=== PATIENT | female | born 1965 | race Hispanic/Latino ===

== ENCOUNTER 2021-07-30 11:20 | Emergency (ER) | payer OTHER, MEDICAID, SELFPAY ==
[2021-07-30 11:25] VITALS: BP 194/84; PULSE 75; RESP 18; TEMP 36.3; O2SAT 100; BMI 26.2
--- NOTE | 2021-07-30 11:50 | DI.RAD.S_ITS ---
PROCEDURE: XR CHEST 1V INDICATIONS: chest pain TECHNIQUE: One view of the chest was acquired. COMPARISON: [facility], , CHEST 1VW (PORTABLE), 11/25/2012, 21:52. FINDINGS: Surgical changes and devices: None. Lungs and pleura: Lungs are clear. No pleural effusions or pneumothorax. Mediastinum: Mediastinal contours appear normal. Heart size is normal. Bones and chest wall: No suspicious bony lesions. Overlying soft tissues appear unremarkable. IMPRESSION: No acute cardiopulmonary disease process. Dictated by: Emily Levin MD, PhD on 07/30/2021 at 12:13 Approved by: Emily Levin MD, PhD on 07/30/2021 at 12:13
--- NOTE | 2021-07-30 12:22 | DI.US.S_ITS ---
PROCEDURE: US ABDOMEN LIMITED INDICATIONS: RUQ pain TECHNIQUE: Real-time scanning was performed of the abdominal and retroperitoneal organs, with image documentation. COMPARISON: None. FINDINGS: Liver: Liver is normal in size and homogeneous in echotexture. Gallbladder: The gallbladder appears normal without gallstones or gallbladder wall thickening. There is no pericholecystic fluid. Sonographic Carrillo sign is negative. Biliary ducts: Intrahepatic bile ducts are non-dilated. Extrahepatic bile duct caliber measures 3 mm. Normal is 6-7 mm or less in diameter, or 10 mm or less post-cholecystectomy. Pancreas: Visualized portions of the pancreas are sonographically normal. Miscellaneous: No free right upper quadrant fluid. IMPRESSION: No acute abnormality is identified in the right upper quadrant. Normal gallbladder. Dictated by: Orlando Hernandez M.D. on 07/30/2021 at 13:08 Approved by: Orlando Hernandez M.D. on 07/30/2021 at 13:10
[2021-07-30 12:23] VITALS: BP 166/74; PULSE 71; RESP 24
[2021-07-30 12:30] VITALS: BP 146/73; PULSE 66; RESP 10
[2021-07-30 12:34] LABS: Add Manual Diff / Slide Review NO; Basophils Absolute Auto 0 /uL (0-100); Basophils Percent Auto 0.6 % (0-2); Eosinophils Absolute Auto 0 /uL (0-450); Eosinophils Percent Auto 0.3 % (2-4); Hematocrit 38.3 % (36-46); Hemoglobin 13.1 g/dL (12.0-16.0); Lymphocytes Absolute Auto 1600 /uL (1100-4500); Mean Corpuscular HGB Conc 34.2 % (30-36); Mean Corpuscular Hemoglobin 31.6 PG (26-34); Mean Corpuscular Volume 92.4 fL (80-100); Monocytes Absolute Auto 200 /uL (0-900); Monocytes Percent Auto 3.3 % (3-14); Neutrophils Absolute Auto 4400 /uL (1500-7000); Neutrophils Percent Auto 69.8 % (50-75); Platelet Count 220 X10^3/uL (150-400); Red Blood Cell Count 4.14 X10^6/uL (4.0-5.2); Red Cell Distribution Width 13.2 % (11.6-14.8); White Blood Cell Count 6.3 X10^3/uL (4.5-11.0)
--- NOTE | 2021-07-30 12:38 | ED.HA ---
HPI - Headache <Shantal Chiang PA-C - Last Filed: 07/31/21 22:25> General Chief Complaint: Headache Stated Complaint: Headache/HBP/Stomache Pain/Tired, Chest discomfort Time Seen by Provider: 07/30/21 11:27 Mode of arrival: Ambulatory Limitations: no limitations History of Present Illness HPI Narrative: 55-year-old female PMH fatty liver who presents to the ED complaining of one-week history of intermittent they symptoms to include right-sided chest discomfort, right upper quadrant pain after spicy meal, fatigue, headache, and intermittent episodes of elevated blood pressure. Patient states that last week she received bad news and had is intermittently had these symptoms. She has been monitoring her blood pressure as of yesterday and noted readings of 160/80, with before/89, and 180/101. She took 3 aspirin and drank lemon water afterwards. Denies vision change, vomiting, diarrhea. Denies SOB, chest pain, or abdominal pain currently. Related Data Allergies Allergy/AdvReac Type Severity Reaction Status Date / Time No Known Drug Allergies Allergy Verified 07/30/21 11:49 Review of Systems <Shantal Chiang PA-C - Last Filed: 07/31/21 22:25> Review of Systems Narrative: General: denies fever, chills Head/Neck: reports headache, denies neck pain Eyes: denies visual changes, eye pain Cardio: denies chest pain, palpitations Respiratory: denies shortness of breath, cough GI: reports abdominal pain, denies nausea, vomiting, or diarrhea : denies dysuria, hematuria MSK: denies joint pain, muscle weakness Skin: denies rash, itching Neuro: denies numbness, tingling Patient History <Shantal Chiang PA-C - Last Filed: 07/31/21 22:25> Social History Smoking Status: Never smoker Smoking Status: Never smoker Substance Use Type: does not use Exam <Shantal Chiang PA-C - Last Filed: 07/31/21 22:25> Narrative Exam Narrative: Independently reviewed vitals signs and nursing notes. General: Awake, alert, nontoxic, no cardiorespiratory distress Head/Neck: Atraumatic, neck full range of motion Eyes: EOMI, conjunctiva normal Nose: nares patent, no rhinorrhea Mouth/Throat: moist mucus membranes, posterior pharynx normal, no oral lesions Cardio: Regular rate and rhythm, no peripheral edema Respiratory: CTAB unlabored without wheezing, stridor, or rales. No retractions. GI: Abdomen soft, nontender, no guarding or rebound tenderness MSK: Moves all extremities, neurovascularly intact Skin: Normal capillary refill, no rash Neuro: Normal speech and cognition, normal gait Initial Vital Signs Initial Vital Signs: Vital Signs Temperature 97.4 F L 07/30/21 11:25 Pulse Rate 75 07/30/21 11:25 Respiratory Rate 18 07/30/21 11:25 Blood Pressure 194/84 H 07/30/21 11:25 Pulse Oximetry 100 07/30/21 11:25 <Savita Figueroa DO - Last Filed: 08/04/21 02:16> Initial Vital Signs Initial Vital Signs: Vital Signs Temperature 97.4 F L 07/30/21 11:25 Pulse Rate 75 07/30/21 11:25 Respiratory Rate 18 07/30/21 11:25 Blood Pressure 194/84 H 07/30/21 11:25 Pulse Oximetry 100 07/30/21 11:25 Course <Shantal Chiang PA-C - Last Filed: 07/31/21 22:25> Orders Ordered: Discontinued Medications Acetaminophen (Acetaminophen 325 Mg Tablet) 650 mg PO NOW ONE Stop: 07/30/21 13:52 Last Admin: 07/30/21 14:03 Dose: Not Given Documented by: BISI Ibuprofen (Ibuprofen 600 Mg Tablet) 600 mg PO NOW ONE Stop: 07/30/21 13:59 Last Admin: 07/30/21 14:02 Dose: Not Given Documented by: BISI Ibuprofen (Ibuprofen 400 Mg Tablet) 400 mg PO NOW ONE Stop: 07/30/21 14:04 Last Admin: 07/30/21 14:10 Dose: 400 mg Documented by: BISI Vital Signs Vital signs: Vital Signs - 8 hr 07/30/21 13:30 Pulse Rate 64 Respiratory Rate 20 Blood Pressure 134/74 <Savita Figueroa DO - Last Filed: 08/04/21 02:16> Orders Ordered: Discontinued Medications Acetaminophen (Acetaminophen 325 Mg Tablet) 650 mg PO NOW ONE Stop: 07/30/21 13:52 Last Admin: 07/30/21 14:03 Dose: Not Given Documented by: BISI Ibuprofen (Ibuprofen 600 Mg Tablet) 600 mg PO NOW ONE Stop: 07/30/21 13:59 Last Admin: 07/30/21 14:02 Dose: Not Given Documented by: BISI Ibuprofen (Ibuprofen 400 Mg Tablet) 400 mg PO NOW ONE Stop: 07/30/21 14:04 Last Admin: 07/30/21 14:10 Dose: 400 mg Documented by: BISI Vital Signs Vital signs: Vital Signs - 8 hr 07/30/21 13:30 Pulse Rate 64 Respiratory Rate 20 Blood Pressure 134/74 MDM - Headache <Shantal Chiang PA-C - Last Filed: 07/31/21 22:25> Lab Data Result diagrams: 07/30/21 12:19 07/30/21 12:19 Labs: Lab Results 07/30/21 07/30/21 07/30/21 Range/Units 12:19 12:19 12:20 WBC 6.3 (4.5-11.0) X10^3/uL RBC 4.14 (4.0-5.2) X10^6/uL Hgb 13.1 (12.0-16.0) g/dL Hct 38.3 (36-46) % MCV 92.4 (80-100) fL MCH 31.6 (26-34) PG MCHC 34.2 (30-36) % RDW 13.2 (11.6-14.8) % Plt Count 220 (150-400) X10^3/uL Neut % (Auto) 69.8 (50-75) % Lymph % (Auto) 26.0 (25-40) % [place] % (Auto) 3.3 (3-14) % Eos % (Auto) 0.3 L (2-4) % Baso % (Auto) 0.6 (0-2) % Neut # (Auto) 4400 (0725-7669) /uL Lymph # (Auto) 1600 (0526-5649) /uL [place] # (Auto) 200 (0-900) /uL Eos # (Auto) 0 (0-450) /uL Baso # (Auto) 0 (0-100) /uL Sodium 138 (137-145) mmol/L Potassium 3.8 (3.4-5.1) mmol/L Chloride 105 (98-107) mmol/L Carbon Dioxide 26 (22-32) mmol/L BUN 19 H (7-17) mg/dL Creatinine 0.58 (0.52-1.04) mg/dL Estimated GFR > 60.0 (>60) mL/min BUN/Creatinine Ratio 32.8 H (6-22) Glucose 101 H (70-100) mg/dL Calcium 9.7 (8.4-10.2) mg/dL Total Bilirubin 1.1 (0.2-1.3) mg/dL AST 29 (14-36) IU/L ALT 18 (<35) IU/L Alkaline Phosphatase 56 (38-126) U/L Total Creatine Kinase 96 (30-135) U/L CK-MB (CK-2) TNP CK-MB (CK-2) Rel Index TNP Troponin I < 0.012 (0.01-0.034) ng/mL Total Protein 7.7 (6.3-8.2) g/dL Albumin 4.7 (3.5-5.0) g/dL Globulin 3.0 (1.7-4.1) g/dL Albumin/Globulin Ratio 1.6 (1.0-2.8) Lipase 52 (23-300) U/L SARS-CoV-2 (PCR) Negative (Negative) Urine Dip Bedside Urine Glucose Negative Bedside Urine Bilirubin - Negative Bedside Urine Ketone - Negative Urine Specific [place] 1.010 Bedside Urine Occult Blood +++ Bedside Urine pH 6.0 Bedside Urine Protein - Negative Bedside Urine Urobilinogen - Negative Bedside Urine Nitrite - Negative Bedside Urine Leukocytes - Negative Esterase Imaging Data Chest x-ray: Radiologist's Impression: PROCEDURE:? XR CHEST 1V ? INDICATIONS:? chest pain ? TECHNIQUE:? One view of the chest was acquired.? ? COMPARISON:? [facility], , CHEST 1VW (PORTABLE), 11/25/2012, 21:52. ? FINDINGS:? ? Surgical changes and devices:? None.? ? Lungs and pleura:? Lungs are clear.? No pleural effusions or pneumothorax.? ? Mediastinum:? Mediastinal contours appear normal.? Heart size is normal.? ? Bones and chest wall:? No suspicious bony lesions.? Overlying soft tissues appear unremarkable.? ? IMPRESSION:? No acute cardiopulmonary disease process. ? ? Dictated by: Emily Levin MD, PhD on 07/30/2021 at 12:13 ? ? Approved by: Emily Levin MD, PhD on 07/30/2021 at 12:13 ? US - abdomen: Radiologist's Impression: PROCEDURE:? US ABDOMEN LIMITED ? INDICATIONS:? RUQ pain ? TECHNIQUE:? Real-time scanning was performed of the abdominal and retroperitoneal organs, with image documentation.? ? COMPARISON:? None. ? FINDINGS:? ? Liver:? Liver is normal in size and homogeneous in echotexture.? ? Gallbladder:? The gallbladder appears normal without gallstones or gallbladder wall thickening.? There is no pericholecystic fluid.? Sonographic Carrillo sign is negative. ? Biliary ducts:? Intrahepatic bile ducts are non-dilated.? Extrahepatic bile duct caliber measures 3 mm.? Normal is 6-7 mm or less in diameter, or 10 mm or less post-cholecystectomy.? ? Pancreas:? Visualized portions of the pancreas are sonographically normal.? ? Miscellaneous:? No free right upper quadrant fluid.? ? ? IMPRESSION:? No acute abnormality is identified in the right upper quadrant.? Normal gallbladder. ? ? ? Dictated by: Orlando Hernandez M.D. on 07/30/2021 at 13:08 ? ? Approved by: Orlando Hernandez M.D. on 07/30/2021 at 13:10 ? ECG Data Interpretation: EKG independently reviewed by myself and ED provider at 1340 reveals normal sinus rhythm at 71 bpm with regular axis and intervals. No STEMI, ST segment changes, arrhythmia, or acute ischemic changes. MDM Narrative Medical decision making narrative: 55-year-old female PMH fatty liver who presents to the ED complaining of one-week history of intermittent they symptoms to include right-sided chest discomfort, right upper quadrant pain after spicy meal, fatigue, headache, and intermittent episodes of elevated blood pressure.?ED workup to include CBC, CMP, CK, troponin, lipase without acute abnormality. COVID negative. Chest x-ray and right upper quadrant ultrasound unremarkable. EKG unremarkable. No evidence of acute abdominal, cardiac, pulmonary findings. No evidence of hypertensive emergency. Patient is appropriate and amenable to discharge home. Vital signs are stable on repeat examination is unremarkable. Patient has been informed of results. Patient has been given strict return to ER precautions for any new or worsening symptoms. Patient understands to follow up closely with outpatient providers as instructed. Patient understands plan and agrees to discharge home. All questions and concerns answered at this time. <Savita Figueroa, DO - Last Filed: 08/04/21 02:16> Lab Data Labs: Lab Results 07/30/21 07/30/21 07/30/21 Range/Units 12:19 12:19 12:20 WBC 6.3 (4.5-11.0) X10^3/uL RBC 4.14 (4.0-5.2) X10^6/uL Hgb 13.1 (12.0-16.0) g/dL Hct 38.3 (36-46) % MCV 92.4 (80-100) fL MCH 31.6 (26-34) PG MCHC 34.2 (30-36) % RDW 13.2 (11.6-14.8) % Plt Count 220 (150-400) X10^3/uL Neut % (Auto) 69.8 (50-75) % Lymph % (Auto) 26.0 (25-40) % [place] % (Auto) 3.3 (3-14) % Eos % (Auto) 0.3 L (2-4) % Baso % (Auto) 0.6 (0-2) % Neut # (Auto) 4400 (5272-0350) /uL Lymph # (Auto) 1600 (4056-9544) /uL [place] # (Auto) 200 (0-900) /uL Eos # (Auto) 0 (0-450) /uL Baso # (Auto) 0 (0-100) /uL Sodium 138 (137-145) mmol/L Potassium 3.8 (3.4-5.1) mmol/L Chloride 105 (98-107) mmol/L Carbon Dioxide 26 (22-32) mmol/L BUN 19 H (7-17) mg/dL Creatinine 0.58 (0.52-1.04) mg/dL Estimated GFR > 60.0 (>60) mL/min BUN/Creatinine Ratio 32.8 H (6-22) Glucose 101 H (70-100) mg/dL Calcium 9.7 (8.4-10.2) mg/dL Total Bilirubin 1.1 (0.2-1.3) mg/dL AST 29 (14-36) IU/L ALT 18 (<35) IU/L Alkaline Phosphatase 56 (38-126) U/L Total Creatine Kinase 96 (30-135) U/L CK-MB (CK-2) TNP CK-MB (CK-2) Rel Index TNP Troponin I < 0.012 (0.01-0.034) ng/mL Total Protein 7.7 (6.3-8.2) g/dL Albumin 4.7 (3.5-5.0) g/dL Globulin 3.0 (1.7-4.1) g/dL Albumin/Globulin Ratio 1.6 (1.0-2.8) Lipase 52 (23-300) U/L SARS-CoV-2 (PCR) Negative (Negative) Urine Dip Bedside Urine Glucose Negative Bedside Urine Bilirubin - Negative Bedside Urine Ketone - Negative Urine Specific [place] 1.010 Bedside Urine Occult Blood +++ Bedside Urine pH 6.0 Bedside Urine Protein - Negative Bedside Urine Urobilinogen - Negative Bedside Urine Nitrite - Negative Bedside Urine Leukocytes - Negative Esterase Discharge Plan Departure Patient Disposition: Home Clinical Impression: Elevated blood pressure reading, Right upper quadrant abdominal pain, Chest discomfort Instructions: Acute Abdominal Pain, Blood Pressure Testing and Measurement, DI for Atypical Chest Pain Activity Restrictions/Additional Instructions: *You have been diagnosed with [elevated blood pressure reading] *What to do: [ ] New medication prescriptions sent to your pharmacy: [ ] [ ] New medication written as a paper prescription [X] No new medications given * Please follow-up with your primary care provider in 2-3 days, call for an appointment. Let them know you were seen in the emergency department and that we ask you to be seen in follow-up. * IF YOU DO NOT HAVE A PRIMARY CARE PROVIDER, please contact the [facility] Resource line at [phone]. They will ask some questions about your medical history and help to get up with a doctor in the community. * Return to the if you should have any new, worsening, or concerning symptoms, such as [recent chest pain, abdominal pain, vomiting, headache, dizziness]. <Savita Figueroa, - Last Filed: 08/04/21 02:16> Cosign ED Attending Tiffanyature Attestation: I was immediately available in the department for consultation. Documentation has been reviewed.
[2021-07-30 12:47] LABS: Alanine Aminotransferase 18 IU/L (<35); Albumin 4.7 g/dL (3.5-5.0); Albumin Globulin Ratio 1.6 (1.0-2.8); Alkaline Phosphatase 56 U/L (38-126); Aspartate Aminotransferase 29 IU/L (14-36); BUN Creatinine Ratio 32.8 (6-22); Bilirubin Total 1.1 mg/dL (0.2-1.3); Blood Urea Nitrogen 19 mg/dL (7-17); Calcium 9.7 mg/dL (8.4-10.2); Carbon Dioxide 26 mmol/L (22-32); Chloride 105 mmol/L (98-107); Creatine Kinase 96 U/L (30-135); Estimated Glomerular Filt Rate > 60.0 mL/min (>60); Glucose 101 mg/dL (70-100); HEMOLYSIS 18 (0-50); Lipase 52 U/L (23-300); Potassium 3.8 mmol/L (3.4-5.1); Sodium 138 mmol/L (137-145); Total Protein 7.7 g/dL (6.3-8.2)
[2021-07-30 12:58] LABS: Troponin I < 0.012 ng/mL (0.01-0.034)
[2021-07-30 13:00] VITALS: BP 144/78; PULSE 68; RESP 24
[2021-07-30 13:30] VITALS: BP 134/74; PULSE 64; RESP 20
[2021-07-30] MEDS: IBUPROFEN 400 MG TABLET PO (14:10)
[2021-07-30 14:44] LABS: COVID19 -Nasal RAPID Negative (Negative)
== END 2021-07-30 14:25 | disposition home or self-care (01) ==
PROVIDERS: Emergency Medicine; Emergency Provider Physician Assistant
DX: R03.0 Elevated blood-pressure reading, without diagnosis of hypertension (principal); R10.11 Right upper quadrant pain; R07.9 Chest pain, unspecified; R51.9 Headache, unspecified; Z20.822 Contact with and (suspected) exposure to COVID-19
CPT/HCPCS: 36415; 71045; 76705; 80053; 81003; 82550; 83690; 84484; 85025; 87635; 93005; 99284; C9803

== ENCOUNTER → 2023-07-26 08:25 | Outpatient (CLI) | payer OTHER, MEDICAID, SELFPAY ==
[2023-07-26 09:09] LABS: Add Manual Diff / Slide Review NO; Basophils Absolute Auto 0 /uL (0-100); Basophils Percent Auto 0.6 % (0-2); Eosinophils Absolute Auto 100 /uL (0-450); Eosinophils Percent Auto 2.2 % (2-4); Hematocrit 36.8 % (36-46); Hemoglobin 12.6 g/dL (12.0-16.0); Lymphocytes Absolute Auto 1600 /uL (1100-4500); Mean Corpuscular HGB Conc 34.1 % (30-36); Mean Corpuscular Hemoglobin 32.4 PG (26-34); Mean Corpuscular Volume 94.8 fL (80-100); Monocytes Absolute Auto 200 /uL (0-900); Monocytes Percent Auto 5.6 % (3-14); Neutrophils Absolute Auto 1700 /uL (1500-7000); Neutrophils Percent Auto 47.6 % (50-75); Platelet Count 206 X10^3/uL (150-400); Red Blood Cell Count 3.88 X10^6/uL (4.0-5.2); Red Cell Distribution Width 12.8 % (11.6-14.8); White Blood Cell Count 3.6 X10^3/uL (4.5-11.0)
[2023-07-26 09:38] LABS: Alanine Aminotransferase 24 IU/L (<35); Albumin 4.2 g/dL (3.5-5.0); Albumin Globulin Ratio 1.6 (1.0-2.8); Alkaline Phosphatase 41 U/L (38-126); Aspartate Aminotransferase 27 IU/L (14-36); BUN Creatinine Ratio 22.5 (6-22); Bilirubin Total 1.8 mg/dL (0.2-1.3); Blood Urea Nitrogen 16 mg/dL (7-17); Calcium 9.4 mg/dL (8.4-10.2); Carbon Dioxide 31 mmol/L (22-32); Chloride 103 mmol/L (98-107); Cholesterol 240 mg/dL (140-199); Estimated Glomerular Filt Rate > 60 mL/min (>60); Globulin 2.6 g/dL (1.7-4.1); Glucose 89 mg/dL (70-100); HDL Cholesterol 63 mg/dL (40-60); HEMOLYSIS < 15 (0-50); LDL Cholesterol Calculated 154 mg/dL (<100); Sodium 138 mmol/L (137-145); Total Protein 6.8 g/dL (6.3-8.2); Triglycerides 116 mg/dL (35-150)
[2023-07-26 09:54] LABS: Vitamin D 25 Hydroxy (D3) 36.5 ng/mL (30.0-100.0)
[2023-07-26 10:34] LABS: TSH w/ Reflex to FT4 3.15 uIU/mL (0.47-4.68)
[2023-07-26 10:49] LABS: Vitamin B12 410 pg/mL (239-931)
== END ==
PROVIDERS: Referring Provider Physician Assistant; Visit Provider Physician Assistant
DX: I10 Essential (primary) hypertension (principal); M85.80 Other specified disorders of bone density and structure, unspecified site; E78.5 Hyperlipidemia, unspecified
CPT/HCPCS: 36415; 80053; 80061; 82306; 82607; 84443; 85025

== ENCOUNTER → 2024-01-13 08:21 | Outpatient (CLI) | payer OTHER, MEDICAID, SELFPAY ==
--- NOTE | 2024-01-13 | DI.RAD.S_ITS ---
PROCEDURE: XR HUMERUS LT 2V INDICATIONS: LEFT ARM PAIN TECHNIQUE: 2 views of the humerus were acquired. COMPARISON: None. FINDINGS: Bones: No fractures or dislocations. No suspicious bony lesions. Soft tissues: No suspicious soft tissue calcifications. IMPRESSION: No acute bony abnormality. Approved by: Ruben Coronado M.D. on 01/13/2024 at 17:33
--- NOTE | 2024-01-13 08:25 | DI.MRI.S_ITS ---
PROCEDURE: MR KNEE LT WO CON INDICATIONS: left knee pain TECHNIQUE: Noncontrast sagittal PD fast spin echo and T2 fast spin echo with fat saturation, sagittal 3-D FLASH with fat saturation; coronal T1 spin echo and PD fast spin echo with fat saturation, and axial PD fast spin echo with fat saturation through the knee. COMPARISON: [facility], CR, XR KNEE ARTHRITIC SERIES RT, 10/19/2023, 7:32. FINDINGS: Image quality: Excellent. Anterior cruciate ligament: Intact. Posterior cruciate ligament: Intact. Medial collateral ligament: Intact. Lateral collateral ligament: Intact. Medial meniscus: Intermediate intrasubstance signal is seen in the body of the medial meniscus without extension to an articular surface, most compatible with intrasubstance degeneration. Lateral meniscus: Intact. Medial and lateral tendons: The semimembranosus tendon insertions appear intact. Visualized portions of the pes anserinus tendons appear normal. The popliteus tendon is intact. Iliotibial band appears normal. Anterior structures: The quadriceps and patellar tendons appear intact. No patellar subluxation. No femoral trochlear dysplasia or ventral trochlear prominence. No edema in the infrapatellar fat pad. Bones and cartilage: No bone marrow contusions or fractures. Medial femorotibial cartilage: No focal cartilage defect. Mild partial thickness thinning in the weight-bearing portion of the medial compartment. Lateral femorotibial cartilage: Mild surface cartilage irregularity at the posterior weight-bearing portion of the lateral tibial plateau. Patellofemoral cartilage: Partial-thickness cartilage irregularity in the cartilage fissuring are seen at the medial patellar facet with focal subchondral cystic changes Soft tissues: A small joint effusion is present. Trace medial popliteal cyst. The musculature surrounding the knee is normal in bulk. IMPRESSION: 1. Mild intrasubstance degeneration in the medial meniscus. No significant meniscal tear seen. 2. Cruciate and collateral ligaments are intact. No acute trabecular bone injury. 3. Mild tricompartmental grade 2 chondromalacia, slightly worse in the patellofemoral compartment where there are focal subchondral cystic changes. 4. Small joint effusion. Approved by: Orlando Hernandez M.D. on 01/13/2024 at 13:49
--- NOTE | 2024-01-13 08:25 | DI.MRI.S_ITS ---
PROCEDURE: MR KNEE RT WO CON INDICATIONS: right knee pain TECHNIQUE: Noncontrast sagittal PD fast spin echo and T2 fast spin echo with fat saturation, sagittal 3-D FLASH with fat saturation; coronal T1 spin echo and PD fast spin echo with fat saturation, and axial PD fast spin echo with fat saturation through the knee. COMPARISON: [facility], CR, XR KNEE ARTHRITIC SERIES RT, 10/19/2023, 7:32. [facility], MR, MR KNEE LT WO CON, 01/13/2024, 8:46. FINDINGS: Image quality: Excellent. Anterior cruciate ligament: Intact. Posterior cruciate ligament: Intact. Medial collateral ligament: Intact. Lateral collateral ligament: Intact. Medial meniscus: Intermediate signal intensity is seen in the body of the medial meniscus that appears to communicate with the tibial articular surface at the mid to inner third, likely a chronic tear. Lateral meniscus: Intact. Medial and lateral tendons: The semimembranosus tendon insertions appear intact. Visualized portions of the pes anserinus tendons appear normal. The popliteus tendon is intact. Iliotibial band appears normal. Anterior structures: The quadriceps and patellar tendons appear intact. No patellar subluxation. No femoral trochlear dysplasia or ventral trochlear prominence. No edema in the infrapatellar fat pad. Bones and cartilage: No bone marrow contusions or fractures. Medial femorotibial cartilage: Mild partial thickness cartilage thinning in the weight-bearing portion of the medial femorotibial compartment. Lateral femorotibial cartilage: Mild partial thickness cartilage thinning and surface irregularity. Patellofemoral cartilage: Moderate cartilage irregularity is seen at the median ridge/medial facet of the patella with mild subchondral cystic changes. There is deep cartilage fissuring at the trochlear groove with subchondral cystic changes. Soft tissues: Small joint effusion. Trace medial popliteal cyst. The musculature surrounding the knee is normal in bulk. IMPRESSION: 1. Horizontal oblique tearing at the body of the medial meniscus extending to the mid to inner third of the tibial articular surface. 2. Cruciate and collateral ligaments are intact. No acute trabecular bone injury. 3. Grade 2-3 chondromalacia in the patellofemoral compartment with subchondral cystic changes. Mild grade 2 chondromalacia in the medial and lateral femorotibial compartments. 4. Small joint effusion. Approved by: Orlando Hernandez M.D. on 01/13/2024 at 13:56
== END ==
LOC: MRI 08:23
PROVIDERS: PCP Physician Assistant; Referring Provider Physician Assistant; Visit Provider Physician Assistant
DX: S83.241A Other tear of medial meniscus, current injury, right knee, initial encounter (principal); M79.602 Pain in left arm; M25.561 Pain in right knee; M25.562 Pain in left knee; M25.462 Effusion, left knee; M25.461 Effusion, right knee; M22.42 Chondromalacia patellae, left knee; M22.41 Chondromalacia patellae, right knee
CPT/HCPCS: 73060; 73721

== ENCOUNTER → 2024-02-03 10:15 | Outpatient (CLI) | payer OTHER, MEDICAID, SELFPAY ==
[2024-02-03 11:30] LABS: Alanine Aminotransferase 21 IU/L (<35); Albumin 4.2 g/dL (3.5-5.0); Albumin Globulin Ratio 1.4 (1.0-2.8); Alkaline Phosphatase 47 U/L (38-126); Aspartate Aminotransferase 26 IU/L (14-36); BUN Creatinine Ratio 26.3 (6-22); Bilirubin Total 1.7 mg/dL (0.2-1.3); Blood Urea Nitrogen 20 mg/dL (7-17); Calcium 9.4 mg/dL (8.4-10.2); Carbon Dioxide 31 mmol/L (22-32); Chloride 104 mmol/L (98-107); Cholesterol 265 mg/dL (140-199); Estimated Glomerular Filt Rate > 60 mL/min (>60); Globulin 3.1 g/dL (1.7-4.1); Glucose 85 mg/dL (70-100); HDL Cholesterol 63 mg/dL (40-60); HEMOLYSIS < 15 (0-50); LDL Cholesterol Calculated 188 mg/dL (<100); Potassium 4.3 mmol/L (3.4-5.1); Sodium 139 mmol/L (137-145); Total Protein 7.3 g/dL (6.3-8.2); Triglycerides 71 mg/dL (35-150)
[2024-02-03 11:31] LABS: Hemoglobin A1C% w Est Avg Glu 5.2 % (4.0-6.0)
[2024-02-03 11:50] LABS: Add Manual Diff / Slide Review NO; Basophils Absolute Auto 0 /uL (0-100); Basophils Percent Auto 0.8 % (0-2); Eosinophils Absolute Auto 0 /uL (0-450); Eosinophils Percent Auto 1.6 % (2-4); Hematocrit 36.3 % (36-46); Hemoglobin 12.5 g/dL (12.0-16.0); Lymphocytes Absolute Auto 1200 /uL (1100-4500); Mean Corpuscular HGB Conc 34.3 % (30-36); Mean Corpuscular Hemoglobin 32.5 PG (26-34); Mean Corpuscular Volume 94.6 fL (80-100); Monocytes Absolute Auto 200 /uL (0-900); Monocytes Percent Auto 4.8 % (3-14); Neutrophils Absolute Auto 1700 /uL (1500-7000); Neutrophils Percent Auto 53.8 % (50-75); Platelet Count 211 X10^3/uL (150-400); Red Blood Cell Count 3.84 X10^6/uL (4.0-5.2); White Blood Cell Count 3.2 X10^3/uL (4.5-11.0)
[2024-02-03 12:33] LABS: TSH w/ Reflex to FT4 2.13 uIU/mL (0.47-4.68)
== END ==
PROVIDERS: PCP Physician Assistant; Referring Provider Physician Assistant; Visit Provider Physician Assistant
DX: I10 Essential (primary) hypertension (principal)
CPT/HCPCS: 36415; 80053; 80061; 83036; 84443; 85025

== ENCOUNTER → 2024-02-16 07:17 | Outpatient (CLI) | payer OTHER, MEDICAID, SELFPAY ==
--- NOTE | 2024-02-16 07:18 | DI.US.S_ITS ---
PROCEDURE: US PERIPH VENOUS UP EXTREM LEFT INDICATIONS: PAIN TECHNIQUE: Real-time imaging, as well as color and pulse Doppler interrogation, was performed of the upper extremity deep veins from the inferior neck to the antecubital fossa. COMPARISON: None. FINDINGS: The left nternal jugular vein, visualized portions of the subclavian vein, axillary, and brachial veins are free of intraluminal thrombus. Where physically possible, the veins are normally compressible. Color and pulse Doppler demonstrate normal intraluminal flow, with expected phasicity and pulsatility. Additional scanning of the cephalic and basilic veins of the superficial system demonstrates normal compressibility, without thrombus. IMPRESSION: No findings of upper extremity deep venous thrombosis can be seen. Dictated by: Arsen Wiggins M.D. on 02/16/2024 at 9:06 Approved by: Arsen Wiggins M.D. on 02/16/2024 at 9:12
--- NOTE | 2024-02-16 07:18 | DI.US.S_ITS ---
PROCEDURE: US RENAL COMPLETE INDICATIONS: Hematuria; TECHNIQUE: Real-time scanning was performed of the kidneys and bladder, with image documentation. COMPARISON: CT abdomen pelvis 02/22/2023. FINDINGS: Kidneys: Kidneys are normal in size. Right kidney measures 9.8 cm long; left kidney measures 12.1 cm long. Bilateral [id number] hydronephrosis is noted. A hypoechoic area with no increased vascularity of the right kidney measures 2.0 x 1.4 x 1.7 cm containing a 9 mm hyperechoic area that could represent calcium. A 3.2 x 3.2 x 3.0 cm simple cyst of the left kidney noted.. Bladder: Pre-void bladder volume is 285 mL. Post-void residual is 28 mL. Pre-void images demonstrate no intraluminal masses or stones. On pre-void images, bilateral ureteral jets are noted with color Doppler interrogation. (Of note, ureteral jets may not be detectable in up to 25% of cases due to insufficient differences in specific gravity between ureteral and bladder urine). Miscellaneous: No free pelvic fluid. IMPRESSION: 1. [id number] bilateral hydronephrosis\ 2. A 3.2 cm lesion in the right kidney of unknown significance; if indicated CT with contrast or MRI may further evaluate. This was not seen on prior CT from 02/22/2023 Dictated by: Arsen Wiggins M.D. on 02/16/2024 at 9:12 Approved by: Arsen Wiggins M.D. on 02/16/2024 at 9:26
== END ==
LOC: US 07:17
PROVIDERS: PCP Physician Assistant; Referring Provider Physician Assistant; Visit Provider Physician Assistant
DX: N13.30 Unspecified hydronephrosis (principal); N28.1 Cyst of kidney, acquired; N28.9 Disorder of kidney and ureter, unspecified; R31.9 Hematuria, unspecified; M79.602 Pain in left arm
CPT/HCPCS: 76770; 93971

== ENCOUNTER → 2024-03-09 12:05 | Outpatient (CLI) | payer OTHER, MEDICAID, SELFPAY ==
--- NOTE | 2024-03-09 | DI.MRI.S_ITS ---
PROCEDURE: MR AB PANCREATIC/MRCP PROTOCOL INDICATIONS: Right upper quadrant pain TECHNIQUE: Coronal HASTE through the abdomen, axial 2-D FLASH in- and [id number], and breath-hold T2 FSE with fat saturation through the biliary system and pancreas. Oblique coronal and axial thin-slice HASTE, radial thick-slab HASTE centered on the extrahepatic bile ducts. Axial T1 vibe pre and postcontrast. Coronal T1 vibe postcontrast. Restricted diffusion sequences. Sagittal image of the pelvis. 20 cc ProHance IV contrast. COMPARISON: [facility], US, US RENAL COMPLETE, 02/16/2024, 7:39. [facility], CT, CT IVP, 02/22/2023, 8:11. FINDINGS: Image quality: Diagnostic. Gallbladder: No gallstones or wall thickening. Biliary ducts: No biliary dilation. Pancreas: No ductal dilation. No mass or cystic lesion. OTHER: Lung bases: Unremarkable. Liver: No solid mass. Spleen: Size is within normal limits. Adrenal Glands: No adrenal nodules. Kidneys and Ureters: Renal collecting systems are minimally prominent appear decreased compared to CT IVP 02/22/2023. No significant hydronephrosis. No hydroureter. Simple cyst at the inferior left kidney measuring 3.3 cm. No solid mass. No complex renal cystic lesion which requires follow up. Distended urinary bladder. No mass identified. Anteverted uterus. Stomach and Bowel: Normal colonic caliber, without significant wall thickening. The appendix is not dilated. Peritoneum: No abnormal intraperitoneal fluid. No free air. Ventral Wall: No hernia. Abdominal Nodes: No retroperitoneal or mesenteric adenopathy by size criteria. Vessels: Aorta and inferior vena cava are normal in size. Bones: No aggressive osseous abnormality. Grade 1 anterolisthesis of L5 on S1. IMPRESSION: 1. No acute abnormality identified. No free fluid. 2. No biliary or pancreatic ductal dilatation. No mass or adenopathy. 3. No significant hydronephrosis or hydroureter. Distended urinary bladder. Dictated by: Senthil Angela M.D. on 03/09/2024 at 21:00 Approved by: Senthil Angela M.D. on 03/09/2024 at 21:18
== END ==
LOC: MRI 12:06
PROVIDERS: PCP Physician Assistant; Referring Provider Specialist; Visit Provider Specialist
DX: R10.11 Right upper quadrant pain (principal); Z80.0 Family history of malignant neoplasm of digestive organs
CPT/HCPCS: 74183; A9579

== ENCOUNTER → 2025-04-02 08:03 | Outpatient (CLI) | payer OTHER, SELFPAY ==
--- NOTE | 2025-04-02 08:05 | DI.CT.S_ITS ---
PROCEDURE: CT SINUS SCREEN WO CON INDICATIONS: CHRONIC PANSINUSITIS/FACE PAIN/HEADACHE/PND TECHNIQUE: Noncontrast 3.0 mm axial images acquired from the frontal sinuses to the mid-sella, with coronal and sagittal reformats. For radiation dose reduction, the following was used: automated exposure control, adjustment of mA and/or kV according to patient size. COMPARISON: None. FINDINGS: Image quality: Excellent. Maxillary Sinuses: No bony remodeling or destruction. Small left maxillary sinus mucous retention cyst. The sinuses are otherwise clear. Ethmoid Air Cells: No bony remodeling or destruction. Sinuses are clear. Sphenoid Sinuses: No bony remodeling or destruction. Sinuses are clear. Frontal Sinuses: No bony remodeling or destruction. Sinuses are clear. Ostiomeatal Complexes: Ostiomeatal complexes are patent but narrowed by bilateral Allison cells. Miscellaneous: Visualized intra-orbital contents are normal. No irais bullosa or paradoxical turbinate curvature. Mild rightward nasal septal deviation. IMPRESSION: No significant paranasal sinus disease. Small left maxillary sinus mucous retention cyst. Dictated by: Joe Díaz M.D. on 04/02/2025 at 11:28 Approved by: Joe Díaz M.D. on 04/02/2025 at 11:58
== END ==
PROVIDERS: PCP Physician Assistant; Referring Provider Otolaryngology; Visit Provider Otolaryngology
DX: J32.4 Chronic pansinusitis (principal); G44.89 Other headache syndrome; R09.82 Postnasal drip; J34.1 Cyst and mucocele of nose and nasal sinus
CPT/HCPCS: 70486